=== PATIENT | male | born 1945 | race Caucasian/White ===

== ENCOUNTER 2017-01-08 13:48 | Inpatient (IN) | payer MEDICARE, OTHER ==
--- NOTE | 2017-01-08 14:07 | Emergency Department Record ---
History of Present Illness - General Chief Complaint: Fall Injury Stated Complaint: FALL INJURY Time Seen by Provider: 01/08/17 14:07 Source: Patient Mode of Arrival: Ambulatory Limitations: No limitations - History of Present Illness Initial Comments: The patient is here due to R leg pain. The patient fell and banged his R anterior lower leg on the curb a week ago. It has been painful and swollen since but now is getting warm and slightly red. He denies any fever, chills, leg numbness or weakness. He does have a hx of PVD and did have stents placed in both legs 3 years ago but denies any problems relating to the blood flow. He has had no foot weakness or numbness. MD Complaint: Fall Onset/Timin -: Week(s) Fall From: Standing When Fall Occurred: # Days [employer] Fall Witnessed: Yes, by family Place Fall Occurred: Street Loss of Consciousness: None Prolonged Down Time?: No Symptoms Prior to Fall: None Severity: Mild Severity scale (1-10): 2 Quality: Aching Associated Symptoms: Denies - Ada Coma Scale Eye Response: (4) Open spontaneously Motor Response: (6) Obeys commands Verbal Response: (5) Oriented Marcio Total: 15 - Related Data Home Medications Medication Instructions Recorded Confirmed Last Taken Amlodipine Besylate [Norvasc] 10 mg PO DAILY 01/08/17 01/08/17 01/07/17 Aspirin [Ecotrin] 325 mg PO DAILY 01/08/17 01/08/17 01/07/17 [place]-3 Fatty Acids [Fish Oil] 300 mg PO DAILY 01/08/17 01/08/17 01/07/17 Pitavastatin Calcium [Livalo] 2 mg PO DAILY 01/08/17 01/08/17 01/07/17 Rosuvastatin Calcium 10 mg PO DAILY 01/08/17 01/08/17 01/07/17 Valsartan [Diovan] 160 mg PO DAILY 01/08/17 01/08/17 01/07/17 Allergies Allergy/AdvReac Type Severity Reaction Status Date / Time No Known Drug Allergies Allergy Verified 01/08/17 14:02 Travel Screening - Travel/Exposure Within Last 30 Days Have you traveled within the last 30 days?: No Review of Systems Constitutional: Denies: Chills, Fever, Malaise Eyes: Denies: Eye discharge ENT: Denies: Congestion, Throat pain Respiratory: Denies: Dyspnea Cardiovascular: Denies: Arrhythmia, Chest pain Past Medical History - SOCIAL HISTORY Smoking Status: Current every day smoker Alcohol Use: Occassional Drug Use: None - RESPIRATORY Hx Respiratory Disorders: No - CARDIOVASCULAR Hx Cardio Disorders: No Comment:: high cholesterol - NEURO Hx Neuro Disorders: No - GI Hx GI Disorders: No - Hx Genitourinary Disorders: Yes Hx Kidney Stones: Yes - ENDOCRINE Hx Endocrine Disorders: No - MUSCULOSKELETAL Hx Musculoskeletal Disorders: No - PSYCH Hx Psych Problems: No - HEMATOLOGY/ONCOLOGY Hx Hematology/Oncology Disorders: No Family Medical History Any Significant Family History?: Yes Family Hx Comment (NOT TO BE USED IN PLACE OF ITEMS BELOW): Mother- High cholesterol. Father- High cholesterol Hx Stroke: Grandparents Physical Exam - General General Appearance: Alert, Oriented x3, Cooperative, No acute distress - Head Head exam: Atraumatic, Normocephalic, Normal inspection - Eye Eye exam: Normal appearance, PERRL - Respiratory Respiratory exam: Normal lung sounds bilaterally. negative: Respiratory distress - Cardiovascular Cardiovascular Exam: Regular rate, Normal rhythm, Normal heart sounds - GI/Abdominal GI/Abdominal exam: Soft, Normal bowel sounds. negative: Tenderness - Extremities Extremities exam: Full ROM, Normal capillary refill, Tenderness (There is mild tenderness to the anterior R lower leg at the erythematous area. ), Other (The feet have normal sensation and motor function with trace DP pulses bilaterally and equal.). negative: Normal inspection (There is bruising and swelling with a central abrasion to the anterior R lower leg with very slight warmth and erythema.), Calf tenderness (The calf is very soft and nontender.), Joint swelling Course Vital Signs 01/08/17 13:54 Temperature 97.5 F L Pulse Rate 104 H Respiratory 20 Rate Blood Pressure 144/85 Pulse Ox 97 - Reevaluation(s) Reevaluation #1: The patient is doing very well at this time. I did discuss the issues with the patient and did recommend admission for IV Abx and the patient agrees. I then discussed the case with Dr. Arrington and she accepts the patient to the hospital. 01/08/17 16:46 Medical Decision Making - Data Complexity MDM Data: Labs Ordered and/or Reviewed, X-Ray Ordered and/or Reviewed - Lab Data Result diagrams: 01/08/17 14:35 01/08/17 14:35 - Radiology Data Radiology results: Report reviewed (Leg Xray: No acute changes, Old fx. Leg Doppler: Neg for DVT) Disposition Disposition: Admit Clinical Impression: Cellulitis of lower extremity Qualifiers: Laterality: right Qualified Code(s): L03.115 - Cellulitis of right lower limb Disposition: Still a Patient at [facility] Decision to Admit: Admit from ER Decision to Admit Date: 01/08/17 Decision to Admit Time: 16:47 Accepting Physician: Nury Time Discussed w/Accepting Physician: 16:47 Condition: (2) Stable Forms: Patient Portal Access Time of Disposition: 16:47
[2017-01-08] MEDS ORDERED: CEFTRIAXONE SODIUM 1 GM in 0.9 % SODIUM CHLORIDE 100ML 100 ML IVPB ONE (14:15)
[2017-01-08] MEDS ORDERED: Diph,Pert(Acell),Tet Vac 0.5 ML SYR IM ONE (14:15)
[2017-01-08 14:57] LABS: BASO % 0.5 % (0-6); EOS % 2.2 % (0-6); GRAN % 57.4 % (47-80); HEMOGLOBIN 15.1 gm/dl (14.0-18.0); LYMPH % 31.1 % (16-45); MEAN CELL VOLUME 93.2 fl (81-97); MEAN CORPUSCULAR HEMOGLOBIN 31.3 pg (27-33); MEAN CORPUSCULAR HGB CONC 33.6 g/dl (32-36); MEAN PLATELET VOLUME 9.3 fl (7.4-10.4); MONO % 8.8 % (0-9); PLATELET COUNT 267 K/uL (130-400); RED BLOOD COUNT 4.83 M/uL (4.40-5.70); RED CELL DISTRIBUTION WIDTH 13.3 % (11.5-14.5); WHITE BLOOD COUNT W/O DIFF 7.3 K/uL (4.2-12.2)
[2017-01-08 15:13] LABS: INR 0.95; PARTIAL THROMBOPLASTIN TIME 26.7 SECONDS (24.5-39.1); PROTHROMBIN TIME (PATIENT) 10.7 SECONDS (9.5-12.1)
[2017-01-08 15:15] LABS: ANION GAP 11.7 (7-16); BLOOD UREA NITROGEN 13 mg/dL (9-20); C-REACTIVE PROTEIN 0.9 mg/dL (0.0-0.9); CARBON DIOXIDE 26.3 mmol/L (22-30); EST GLOMERULAR FILTRATION RATE > 60 ml/min; GLUCOSE,RANDOM 84 mg/dL (70-110)
[2017-01-08] MEDS ORDERED: ACETAMINOPHEN 500 MG TABLET PO PRN (18:01)
[2017-01-08] MEDS: CEFTRIAXONE SODIUM 1 GM in 0.9 % SODIUM CHLORIDE 100ML 100 ML IVPB SCH (18:43)
[2017-01-09] MEDS: CEFTRIAXONE SODIUM 1 GM in 0.9 % SODIUM CHLORIDE 100ML 100 ML IVPB SCH (05:37)
--- NOTE | 2017-01-09 07:31 | History & Physical ---
History of Present Illness - Date of Service Date of Service for History & Physical: 01/09/17 - History of Present Illness Admitting Diagnosis: 1. Right Leg Cellulitis with possible abscess. History of Present Illness: Willian Luna is a 71 y/o male with PMX 1/2 PPD smoker, PVD and HTN admitted for right lower extremity cellulitis with possible abscess. Patient reports falling and hitting right leg on curb a week ago. No previous history of MRSA or cellulitis Denies fever, body aches, chills, bilat lower extremity numbness or weakness Past medical history significant for PVD in which he had stents placed to bilateral lower extremities 3 years ago with no residual complications. PMX: high cholesterol, kidney stones. 1/2 PPD smoker PSH: Stent in femoral arteries bilaterally, lump removed from neck PCP Dr Stein Travel Screening - Travel/Exposure Within Last 30 Days Have you traveled within the last 30 days?: No - Travel/Exposure Within Last Year Have you traveled outside the [place] in the last year?: No - Additonal Travel Details Have you been exposed to anyone with a communicable illness?: No - Travel Symptoms Symptom Screening: None Review of Systems Constitutional: Denies: Chills, Fever, Malaise Eyes: Denies: Eye discharge ENT: Denies: Congestion, Throat pain Respiratory: Denies: Dyspnea Cardiovascular: Denies: Arrhythmia, Chest pain Past Medical History - SOCIAL HISTORY Smoking Status: Current every day smoker Alcohol Use: Rare Drug Use: None - RESPIRATORY Hx Respiratory Disorders: No - CARDIOVASCULAR Hx Cardio Disorders: No Comment:: high cholesterol - NEURO Hx Neuro Disorders: No - GI Hx GI Disorders: No - Hx Genitourinary Disorders: Yes Hx Kidney Stones: Yes - ENDOCRINE Hx Endocrine Disorders: No - MUSCULOSKELETAL Hx Musculoskeletal Disorders: No - PSYCH Hx Psych Problems: No - HEMATOLOGY/ONCOLOGY Hx Hematology/Oncology Disorders: No Family Medical History Any Significant Family History?: Yes Family Hx Comment (NOT TO BE USED IN PLACE OF ITEMS BELOW): Mother- High cholesterol. Father- High cholesterol Hx Stroke: Grandparents H&P Meds/Allergies - Allergies Allergies: Allergies Allergy/AdvReac Type Severity Reaction Status Date / Time No Known Drug Allergies Allergy Verified 01/08/17 14:02 - Home Medications Home Medications Medication Instructions Recorded Confirmed Last Taken Amlodipine Besylate [Norvasc] 10 mg PO DAILY 01/08/17 01/08/17 01/07/17 Aspirin [Ecotrin] 325 mg PO DAILY 01/08/17 01/08/17 01/07/17 [place]-3 Fatty Acids [Fish Oil] 300 mg PO DAILY 01/08/17 01/08/17 01/07/17 Rosuvastatin Calcium 10 mg PO DAILY 01/08/17 01/08/17 01/07/17 Valsartan [Diovan] 160 mg PO DAILY 01/08/17 01/08/17 01/07/17 - Active Medications Active Medications: Current Medications Acetaminophen (Tylenol 500mg Tab) 500 mg PO Q6H PRN PRN Reason: PAIN/TEMP Aspirin (Ecotrin (Ec)) 325 mg PO DAILY [facility] Ceftriaxone Sodium 1 gm/ (Sodium Chloride) 100 mls @ 100 mls/hr IVPB Q12H DEMETRI Stop: 01/13/17 18:02 Last Admin: 01/09/17 05:37 Dose: 100 mls/hr Non-Formulary Medication (Amlodipine Besylate [Norvasc]) 10 mg PO DAILY [facility] Non-Formulary Medication ([place]-3 Fatty Acids [Fish Oil]) 300 mg PO DAILY [facility] Non-Formulary Medication (Pitavastatin Calcium [Livalo]) 2 mg PO DAILY [facility] Non-Formulary Medication (Rosuvastatin Calcium [Rosuvastatin Calcium]) 10 mg PO DAILY [facility] Non-Formulary Medication (Valsartan [Diovan]) 160 mg PO DAILY [facility] Physical Exam - Vital Signs Vital Signs: Vital Signs - Last 24 Hrs Temp Pulse Resp BP Pulse Ox 01/09/17 05:29 97.6 F 63 16 121/73 97 01/08/17 21:00 68 16 01/08/17 18:01 97.7 F 66 14 141/90 98 - General General Appearance: Alert, Oriented x3, Cooperative, No acute distress Limitations: No limitations - Head Head exam: Atraumatic, Normocephalic, Normal inspection - Eye Eye exam: Normal appearance, PERRL - Respiratory Respiratory exam: Normal lung sounds bilaterally. negative: Respiratory distress - Cardiovascular Cardiovascular Exam: Regular rate, Normal rhythm, Normal heart sounds Peripheral Pulses: 2+: Dorsalis Pedis (R), Dorsalis Pedis (L) - GI/Abdominal GI/Abdominal exam: Soft, Normal bowel sounds. negative: Tenderness - Extremities Extremities exam: Full ROM, Normal capillary refill, Tenderness (There is mild tenderness to the anterior R lower leg at the erythematous area. ), Other (The feet have normal sensation and motor function with trace DP pulses bilaterally and equal.). negative: Normal inspection (There is bruising and swelling with a central abrasion to the anterior R lower leg with very slight warmth and erythema.), Calf tenderness (The calf is very soft and nontender.), Joint swelling Image of Full Body: 1 - scattered ecchymotic areas with approx 4X4 cm area of induration and fluctuance at proximal lateral tibial apect of soft tissue 10 o'clock position. - Neurological Neurological exam: Alert, CN II-XII intact, Oriented X3 Results - Labs Result Diagrams: 01/08/17 14:35 01/08/17 14:35 - Imaging and Cardiology Venous US Status: Report reviewed (1- negative for DVT, 2- diffuse soft tissue swelling) VTE H&P Assessment - Risk for VTE Risk for VTE: Yes Risk Level: Moderate Risk Assessment Date: 01/09/17 Risk Assessment Time: 11:09 VTE Orders Placed or Will Be Placed: Yes Plan - Inpatient Certification Inpatient Certification: Admit to inpatient care: Based on my medical assessment, after consideration of patient's risk factors (age, co-morbidities and patient presenting symptoms and acuity), I expect that this patient will remain in the hospital greater than or equal to two midnights and that the services needed warrant inpatient care because: Patient Risk Factors: [advanced age, previous history of peripheral vascular disease which presents risk of delayed healing] Estimated length of stay: [48-72 hrs] The patient may reasonably be expected to be discharged or transferred to a hospital within 96 hours after admission to [facility]. Services needed: [IV antibiotics, surgical consult] Post hospital care (if known): [] I certify that my determination is in accordance with my understanding of Medicare requirements for reasonable and necessary inpatient services. 01/09/17 07:32 01/09/17 11:09 - Detailed Diagnosis and Plan (1) Cellulitis of leg Current Visit: Yes Status: Acute Qualifiers: Laterality: right Qualified Code(s): L03.115 - Cellulitis of right lower limb Base Code: L03.119 - CELLULITIS OF UNSPECIFIED PART OF LIMB Comment: 3- right lower extremity cellulitis with questionable abscess - area of fluctuance, await results soft tissue ultrasound - venous doppler negative for DVT - tib-fib x-ray negative for acute fracture - surgical consult with Dr Llamas - will change Rocephin to Kefzol 1GM IVPB and Bactrim DS PO BID to empirically cover MRSA - CBC/CMP/coags WNL - await final report of soft tissue ultrasound to r/o abscess vs. hematoma and Dr Llamas's consult (2) HTN (hypertension) Current Visit: Yes Status: Chronic Base Code: I10 - ESSENTIAL (PRIMARY) HYPERTENSION Comment: 01/09- chronic hx HTN - BP stable at this time - continue Valsartan and Amlodipine per home dose (3) DVT prophylaxis Current Visit: Yes Status: Acute Base Code: [id number] - Comment: 01/09- Lovenox 40mg SQ QD during this hospitalization (4) Full code status Current Visit: Yes Status: Acute Base Code: Z78.9 - OTHER SPECIFIED HEALTH STATUS Comment: 01/09- will remain full code status during this hospitalization
--- NOTE | 2017-01-09 07:32 | US VENOUS DOPPLER REPORT ---
EXAM: RIGHT LOWER EXTREMITY VENOUS DOPPLER ULTRASOUND HISTORY: FELL ONE WEEK AGO. RIGHT LOWER EXTREMITY SWELLING AND WARMTH. TECHNIQUE: Duplex Doppler examination of the right lower extremity deep venous system was performed in the standard fashion. Farley scale, color Doppler, and Duplex Doppler imaging was performed. Comparison: None. FINDINGS: The peroneal veins were not well visualized due to edema and bruising within the right lower extremity. The remaining deep venous system from the calf veins through the common femoral vein are normal in appearance with flow, phasicity, compression, and augmentation. A valve is visible within the superior aspect of the greater saphenous vein with normal flow. There is no discreet thrombus and the greater saphenous vein compresses and augments normally. There is no evidence for deep venous thrombosis within the right lower extremity. IMPRESSION: 1. NO EVIDENCE FOR DEEP VENOUS THROMBOSIS WITHIN THE RIGHT LOWER EXTREMITY. 2. NONVISUALIZATION OF THE PERONEAL VEINS WITHIN THE CALF. JOB NUMBER: [id number] MTDD
--- NOTE | 2017-01-09 07:35 | RADIOLOGY REPORT ---
EXAM: RIGHT TIBIA AND FIBULA HISTORY: FELL ONE WEEK AGO. RIGHT LOWER EXTREMITY PAIN AND SWELLING. TECHNIQUE: AP and lateral views of the right tibia and fibula were obtained. Comparison: None. FINDINGS: There are old healed fractures within the mid shafts of the tibia and fibula. An old healed fracture is also noted within the distal femur. There are mild arthritic changes within the knee and ankle. There is no acute fracture or dislocation. There is nonspecific soft tissue swelling within the calf and lower leg. IMPRESSION: 1. OLD HEALED FRACTURES. 2. DIFFUSE SOFT TISSUE SWELLING. 3. NO ACUTE OSSEOUS ABNORMALITY. [facility]BER: [id number] [facility]
[2017-01-09] MEDS ORDERED: PITAVASTATIN CALCIUM 2 MG PO SCH (10:00)
[2017-01-09] MEDS ORDERED: OMEGA PO SCH (10:00)
[2017-01-09] MEDS ORDERED: FATTY ACIDS PO SCH (10:00)
[2017-01-09] MEDS: VALSARTAN 80 MG TAB PO SCH (10:52)
[2017-01-09] MEDS: ASPIRIN 325 MG TAB ENTERIC-COATED PO SCH (10:52)
[2017-01-09] MEDS: AMLODIPINE BESYLATE 5MG TAB PO SCH (10:53)
[2017-01-09] MEDS: ATORVASTATIN 20 MG TABLET PO SCH (10:53)
[2017-01-09] MEDS: TMP/SMZ 160MG/800MG TAB PO SCH ×2 (11:03→22:32)
--- NOTE | 2017-01-09 13:12 | ULTRASOUND REPORT ---
EXAM: ULTRASOUND OF THE RIGHT LOWER EXTREMITY HISTORY: FELL ONE WEEK AGO. RIGHT LOWER EXTREMITY BRUISING. TECHNIQUE: Sonographic evaluation of the right leg was performed with attention to the area of bruising anteriorly. Comparison: None. Encounter: Initial. FINDINGS: There is a heterogeneous fluid collection within the subcutaneous fat of the anterior leg measuring approximately 5 cm in height x 6.4 cm transverse x 0.5 cm in maximal thickness. The appearance is suggestive of a subcutaneous hematoma. IMPRESSION: COMPLEX FLUID COLLECTION WITHIN THE SUBCUTANEOUS FAT OF THE ANTERIOR LOWER LEG SUGGESTING LOCALIZED HEMATOMA FORMATION. THE FLUID COLLECTION MEASURES 5 X 0.5 X 6.4 CM. JOB NUMBER: [id number] MTDD
[2017-01-09] MEDS: CEFAZOLIN 2 Gram 50 ML IVPB SCH (13:14)
[2017-01-10] MEDS: CEFAZOLIN 2 Gram 50 ML IVPB SCH ×2 (00:27→06:10)
[2017-01-10] MEDS ORDERED: ENOXAPARIN 40 MG/0.4 ML SYR SQ SCH (10:00)
[2017-01-10] MEDS: VALSARTAN 80 MG TAB PO SCH (12:19)
[2017-01-10] MEDS: ASPIRIN 325 MG TAB ENTERIC-COATED PO SCH (12:19)
[2017-01-10] MEDS: TMP/SMZ 160MG/800MG TAB PO SCH (12:19)
[2017-01-10] MEDS: AMLODIPINE BESYLATE 5MG TAB PO SCH (12:20)
[2017-01-10] MEDS: ATORVASTATIN 20 MG TABLET PO SCH (12:21)
--- NOTE | 2017-01-10 13:26 | Discharge Summary ---
Providers Discharge Summary Date: 01/10/17 Date of admission: 01/08/17 17:47 Expected Date of Discharge: 01/10/17 Attending physician: KACIE LANE Primary care physician: AGUSTÍN GERMAIN D.O. Consults: Consult Orders 01/09/17 10:36 Consult NOW Consulting Provider: Hansel Llamas Physician Instructions: Reason For Exam: possible abscess Physical Exam - Vital Signs Vital Signs: Vital Signs - Last 24 Hrs Temp Pulse Resp BP Pulse Ox 01/10/17 08:00 98.4 F 76 18 106/68 97 01/10/17 00:32 97.5 F L 57 L 16 100/59 97 - General General Appearance: Alert, Oriented x3, Cooperative, No acute distress Limitations: No limitations - Head Head exam: Atraumatic, Normocephalic, Normal inspection - Eye Eye exam: Normal appearance, PERRL - Respiratory Respiratory exam: Normal lung sounds bilaterally. negative: Respiratory distress - Cardiovascular Cardiovascular Exam: Regular rate, Normal rhythm, Normal heart sounds Peripheral Pulses: 2+: Dorsalis Pedis (R), Dorsalis Pedis (L) - GI/Abdominal GI/Abdominal exam: Soft, Normal bowel sounds. negative: Tenderness - Extremities Extremities exam: Full ROM, Normal capillary refill, Tenderness (There is mild tenderness to the anterior R lower leg at the erythematous area. ), Other (The feet have normal sensation and motor function with trace DP pulses bilaterally and equal.). negative: Normal inspection (There is bruising and swelling with a central abrasion to the anterior R lower leg with very slight warmth and erythema.), Calf tenderness (The calf is very soft and nontender.), Joint swelling - Neurological Neurological exam: Alert, CN II-XII intact, Oriented X3 Hospitalization - Hospitalization Admission Diagnosis: 1. Right Leg Cellulitis with possible abscess. - Problem List/Discharge Diagnosis (1) Cellulitis of leg Current Visit: Yes Status: Acute Discharge Diagnosis: Laterality: right Qualified Code(s): L03.115 - Cellulitis of right lower limb Base Code: L03.119 - CELLULITIS OF UNSPECIFIED PART OF LIMB Comment: 3 - improved significantly with kefzol and bactrim after bactrim was added. will switch to orals and d/c home with follow up with PCP - right lower extremity cellulitis with small hematoma underneath seen on u/s - venous doppler negative for DVT - tib-fib x-ray negative for acute fracture - surgical consult with Dr Llamas - will change Rocephin to Kefzol 1GM IVPB and Bactrim DS PO BID to empirically cover MRSA - CBC/CMP/coags WNL - await final report of soft tissue ultrasound to r/o abscess vs. hematoma and Dr Llamas's consult (2) Full code status Current Visit: Yes Status: Acute Base Code: Z78.9 - OTHER SPECIFIED HEALTH STATUS Comment: 01/09- will remain full code status during this hospitalization (3) HTN (hypertension) Current Visit: Yes Status: Chronic Base Code: I10 - ESSENTIAL (PRIMARY) HYPERTENSION Comment: 01/09- chronic hx HTN - BP stable at this time - continue Valsartan and Amlodipine per home dose (4) DVT prophylaxis Current Visit: Yes Status: Acute Base Code: [id number] - Comment: 01/09- Lovenox 40mg SQ QD during this hospitalization - Hospitalization Course Disposition: Home, Self-Care Procedures: Imaging and X-Rays 01/08/17 17:49 EXTREMITY, LOWER [US] Stat Condition at Discharge: (1) Good Discharge Diagnosis: 1) cellulitis with underlying hematoma Discharge Medications - Discharge Medications Prescriptions: Sulfamethoxazole/Trimethoprim [Bactrim] 1 each PO BID #30 tab Cephalexin [Keflex] 500 mg PO BID #30 cap Home Medications: Ambulatory Orders Amlodipine Besylate [Norvasc] 10 mg PO DAILY 01/08/17 [Last Taken 01/07/17] Aspirin [Ecotrin] 325 mg PO DAILY 01/08/17 [Last Taken 01/07/17] [place]-3 Fatty Acids [Fish Oil] 300 mg PO DAILY 01/08/17 [Last Taken 01/07/17] Rosuvastatin Calcium 10 mg PO DAILY 01/08/17 [Last Taken 01/07/17] Valsartan [Diovan] 160 mg PO DAILY 01/08/17 [Last Taken 01/07/17] Cephalexin [Keflex] 500 mg PO BID #30 cap 01/10/17 [Last Taken Unknown] Sulfamethoxazole/Trimethoprim [Bactrim] 1 each PO BID #30 tab 01/10/17 [Last Taken Unknown] Discharge Plan - Discharge Instructions Activity at Discharge: Resume Usual Activities As Tolerated Diet at Discharge: Regular Diet
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
== END 2017-01-10 13:53 | disposition home or self-care (01) | DRG 603 ==
LOC: ER 13:48 → MEDSURG 17:47
PROVIDERS: ADMIT Family Medicine; ATTEND Family Medicine
DX: L03.115 Cellulitis of right lower limb (principal); I10 Essential (primary) hypertension; I73.89 Other specified peripheral vascular diseases; F17.200 Nicotine dependence, unspecified, uncomplicated; E78.00 Pure hypercholesterolemia, unspecified; Z78.9 Other specified health status; Z79.899 Other long term (current) drug therapy; I87.8 Other specified disorders of veins
CPT/HCPCS: 76882; 80048; 85025; 85610; 85730; 86140; 90715; 96365; 96372; 99223; 99239; 99285